=== PATIENT | male | born 1990 ===

== ENCOUNTER 2019-11-29 22:45 | Emergency (ER) | payer SELFPAY ==
[2019-11-29] MEDS ORDERED: GI Cocktail Oral Solution 30 ML PO ONE (23:00)
--- NOTE | 2019-11-29 23:26 | EDM.PDOC ---
ED HPI GENERAL MEDICAL PROBLEM - General Stated Complaint: STOMACH PAIN Time Seen by Provider: 11/29/19 23:00 Source of Information: Reports: Patient History Limitations: Reports: No Limitations - History of Present Illness INITIAL COMMENTS - FREE TEXT/NARRATIVE: Patient comes emergency department today with complaints of epigastric pain. The patient about 20 minutes prior to arrival developed a sudden squeezing pain in his epigastric region. Prior to this he had a metallic taste in his mouth as well as a burning sensation in his throat. He had similar episode to this about 2 weeks ago that resolved on its own. He has no other pain in his abdomen. No diarrhea. No hematuria dysuria or urinary frequency. No flank pain. No nausea no vomiting. No change in his appetite. He has been able to eat and drink appropriately. No fever no chills. - Related Data Allergies Allergy/AdvReac Type Severity Reaction Status Date / Time No Known Allergies Allergy Verified 11/29/19 23:25 Home Meds: Home Meds . [No Known Home Meds] 11/29/19 [History] ED ROS GENERAL - Review of Systems Review Of Systems: Comprehensive ROS is negative, except as noted in HPI. ED EXAM, GI/ABD - Physical Exam Exam: See Below Exam Limited By: No Limitations General Appearance: Alert Eyes: Bilateral: Normal Appearance, EOMI Respiratory/Chest: No Respiratory Distress, Lungs Clear, No Accessory Muscle Use Cardiovascular: Normal Peripheral Pulses, Regular Rate, Rhythm GI/Abdominal Exam: Normal Bowel Sounds, Soft, No Distention, Tender (Mild tenderness to the epigastric region with guarding or rebound. Negative [place] sign and negative McBurneys. ). No: Distended, Guarding, Rigid, Rebound, Mass, Hepatomegaly, Splenomegaly (Male) Exam: Deferred Rectal (Males) Exam: Deferred Back Exam: Normal Inspection, Full Range of Motion Extremities: Normal Inspection, Normal Range of Motion, Non-Tender, No Pedal Edema, Normal Capillary Refill Neurological: Alert, Oriented, Normal Cognition, Normal Gait, No Motor/Sensory Deficits Psychiatric: Normal Affect, Normal Mood Skin Exam: Warm, Dry, Intact, Normal Color, No Rash Course - Orders/Labs/Meds Meds: Medications Discontinued Medications Generic Name Dose Route Start Last Admin Trade Name Freq PRN Reason Stop Dose Admin Al Hydroxide/Mg Hydroxide 30 ml 11/29/19 23:00 Gi Cocktail PO 11/29/19 23:01 ONETIME ONE - Re-Assessments/Exams Free Text/Narrative Re-Assessment/Exam: 11/29/19 23:32 Gi cocktail with almost complete relief of the patients symptoms in about 5 minutes. Re-examination of the abd shows a soft none tender none distended abd. As the symptoms have completely resolved with a GI cocktail this is clearly GERD and I do not feel that any further testing is warranted at this time. We will send him home with OTC MAALOX or Mylanta and omeprazole. The patient is comfortable with the plan discussed with him and no doing any further testing and his questions answered. 11/29/19 23:47 Departure - Departure Time of Disposition: 23:32 Disposition: Home, Self-Care 01 Clinical Impression: Heartburn - Discharge Information Instructions: Heartburn, [id number], Gastroesophageal Reflux Disease, Adult, [id number] Additional Instructions: Maalox or Mylanta OTC as needed for acute episodes heartburn. Stay away from rich or spicy foods. Omeprazole, 1 capsule daily for the next 28 days. RX given to the patient. Return to the ED if new or worsening symptoms. Follow up with PCP in the next week if not improving sooner if worse. - Assessment/Plan Assessment:: GERD Plan: Maalox or Mylanta OTC as needed for acute episodes heartburn. Stay away from rich or spicy foods. Omeprazole, 1 capsule daily for the next 28 days. RX given to the patient. Return to the ED if new or worsening symptoms. Follow up with PCP in the next week if not improving sooner if worse.
[2019-11-29] MEDS ORDERED: Omeprazole 20 MG Cap.CR PO ONE (23:38)
== END 2019-11-29 23:54 | disposition home or self-care (01) ==
LOC: VM.ED 22:45
DX: K21.9 Gastro-esophageal reflux disease without esophagitis (principal)
CPT/HCPCS: 99284; A9270-GY